=== PATIENT | male | born 1975 | race American Indian/Alaskan Native ===

== ENCOUNTER 2017-01-06 16:47 | Emergency (ER) | payer SELFPAY ==
[2017-01-06 17:02] VITALS: BP 151/94
[2017-01-06] MEDS ORDERED: TORADOL IM ONE (19:05)
--- NOTE | 2017-01-06 19:13 | Emergency Department Report ---
ED Back Pain/Injury HPI - General Chief Complaint: Back Pain/Injury Stated Complaint: BACK PAIN Time Seen by Provider: 01/06/17 18:44 Source: patient Limitations: No Limitations - History of Present Illness Initial Comments: Patient reports that he had a work related injury to the left lower back on 12/02 and relates that he has been seeing a worker's comp doctor who is giving him benadryl, tylenol and motrin. Relates that none of this is helping. Came to ED for pain management. MD Complaint: back pain Onset/Timin -: Gradual, month(s) Place: work Severity: moderate Severity scale (0 -10): 7 Quality: dull, aching Consistency: constant Improves With: immobilization Worsens With: movement Context: while lifting, bending Associated Symptoms: denies other symptoms. denies: confusion, weakness, numbness, difficulty walking, headaches, loss of appetite, nausea/vomiting, rash , syncope - Related Data Home Medications Medication Instructions Recorded Confirmed Last Taken Acetaminophen [Tylenol] 500 mg PO Q4HR 01/06/17 01/06/17 Unknown Motrin 200 MG tab PRN 01/06/17 01/06/17 diphenhydrAMINE [Benadryl CAP] 25 mg PO Q8HR PRN 01/06/17 01/06/17 Unknown Previous Rx's Medication Instructions Recorded Last Taken Type methOCARBAMOL [Robaxin TAB] 500 mg PO BID #20 tab 01/06/17 Unknown Rx traMADol [Ultram 50 MG tab] 50 mg PO Q6HR PRN #20 tablet 01/06/17 Unknown Rx Allergies Allergy/AdvReac Type Severity Reaction Status Date / Time No Known Allergies Allergy Verified 04/27/14 23:10 ED Review of Systems ROS: Stated complaint: BACK PAIN Other details as noted in HPI Constitutional: denies: chills, fever Respiratory: denies: cough, shortness of breath, wheezing Cardiovascular: denies: chest pain, palpitations Musculoskeletal: as per HPI, back pain Skin: denies: rash, lesions Neurological: denies: headache, weakness, paresthesias Psychiatric: denies: anxiety, depression ED Past Medical Hx - Past Medical History Previous Medical History?: Yes Additional medical history: back pain - Surgical History Past Surgical History?: Yes Hx Appendectomy: Yes - Social History Smoking Status: Never Smoker Substance Use Type: Alcohol, Prescribed - Medications Home Medications: Home Medications Medication Instructions Recorded Confirmed Last Taken Type Acetaminophen [Tylenol] 500 mg PO Q4HR 01/06/17 01/06/17 Unknown History Motrin 200 MG tab PRN 01/06/17 01/06/17 History diphenhydrAMINE [Benadryl CAP] 25 mg PO Q8HR PRN 01/06/17 01/06/17 Unknown History methOCARBAMOL [Robaxin TAB] 500 mg PO BID #20 tab 01/06/17 Unknown Rx traMADol [Ultram 50 MG tab] 50 mg PO Q6HR PRN #20 tablet 01/06/17 Unknown Rx ED Physical Exam - General Limitations: No Limitations General appearance: alert, in no apparent distress - Head Head exam: Present: atraumatic, normocephalic - Eye Eye exam: Present: normal appearance - Respiratory Respiratory exam: Present: normal lung sounds bilaterally. Absent: respiratory distress - Cardiovascular Cardiovascular Exam: Present: regular rate, normal rhythm. Absent: systolic murmur, diastolic murmur, rubs, gallop - Back Exam Back exam: Present: normal inspection, full ROM, tenderness, muscle spasm. Absent: paraspinal tenderness, vertebral tenderness - Neurological Exam Neurological exam: Present: alert, oriented X3 - Psychiatric Psychiatric exam: Present: normal affect, normal mood ED Course Vital Signs 01/06/17 16:58 Temperature 98.5 F Pulse Rate 75 Blood Pressure 151/94 O2 Sat by Pulse 99 Oximetry ED Medical Decision Making - Medical Decision Making Patient is resting comfortably in the ED room. Gave 60 mg of IM Toradol. Will start patient on tramadol, robaxin at this time and advised follow up with his doctor in 2-3 days. - Differential Diagnosis lumbar strain, back pain, musculoskeletal pain, back strain Critical care attestation.: If time is entered above; I have spent that time in minutes in the direct care of this critically ill patient, excluding procedure time. ED Disposition Clinical Impression: Lower back pain Qualifiers: Chronicity: chronic Back pain laterality: left Sciatica presence: without sciatica Qualified Code(s): M54.5 - Low back pain; G89.29 - Other chronic pain Disposition: DISCHARGED TO HOME OR SELFCARE Is pt being admited?: No Does the pt Need Aspirin: No Condition: Stable Instructions: Low Back Strain (ED), Acute Low Back Pain (ED), Lumbar Radiculopathy (ED), Back Pain (ED) Prescriptions: methOCARBAMOL [Robaxin TAB] 500 mg PO BID #20 tab traMADol [Ultram 50 MG tab] 50 mg PO Q6HR PRN #20 tablet PRN Reason: Pain Referrals: NAYELI RUBALCAVA MD [Staff Physician] - 3-5 Days Time of Disposition: 19:15
== END 2017-01-06 19:15 | disposition home or self-care (01) ==
LOC: ED 16:47
DX: M54.5 Low back pain (principal); X58.XXXA Exposure to other specified factors, initial encounter; Y93.9 Activity, unspecified; Y92.9 Unspecified place or not applicable; Y99.9 Unspecified external cause status
CPT/HCPCS: 96372; 99282; J1885

== ENCOUNTER 2017-06-07 10:36 | Emergency (ER) | payer SELFPAY ==
[2017-06-07] MEDS ORDERED: PEPCID PO ONE (11:49)
[2017-06-07] MEDS ORDERED: DECADRON IM STA (11:49)
--- NOTE | 2017-06-07 11:49 | Emergency Department Report ---
HPI - General Chief Complaint: Allergic Reaction Time Seen by Provider: 06/07/17 11:43 - HPI HPI: Patient reports that he woke up with swelling to his right face and upper lip. Denies any sore throat or drooling. Denies any itchy throat. Denies any tongue swelling. He said he drank Gatorade before he went to bed last night and he doesn't know if this is causing the reaction. Denies any fever or chills. Denies any toothache but reports that he has right lower tooth that is fractured and he doesn't know if that's cause then the swelling to his face. Denies any wheezing, coughing, stridor chest pain or difficulty breathing. No [id number] medication taken. Patient does not have a dentist. ED Past Medical Hx - Past Medical History Previous Medical History?: No Additional medical history: back pain - Surgical History Past Surgical History?: Yes Hx Appendectomy: Yes - Family History Family history: no significant - Social History Smoking Status: Never Smoker Substance Use Type: None Other Social History: Lives with family - Medications Home Medications: Home Medications Medication Instructions Recorded Confirmed Last Taken Type Acetaminophen [Tylenol] 500 mg PO Q4HR 01/06/17 01/06/17 Unknown History Motrin 200 MG tab PRN 01/06/17 01/06/17 History Penicillin Vk [Veetids TAB] 500 mg PO QID #40 tablet 01/06/17 Unknown Rx diphenhydrAMINE [Benadryl CAP] 25 mg PO Q8HR PRN 01/06/17 01/06/17 Unknown History methOCARBAMOL [Robaxin TAB] 500 mg PO BID #20 tab 01/06/17 Unknown Rx traMADol [Ultram 50 MG tab] 50 mg PO Q6HR PRN #20 tablet 01/06/17 Unknown Rx Amoxicillin [Amoxicillin TAB] 875 mg PO BID #20 tablet 06/07/17 Unknown Rx diphenhydrAMINE [Benadryl CAP] 25 mg PO Q8HR PRN #12 capsule 06/07/17 Unknown Rx predniSONE [Deltasone] 50 mg PO QDAY #5 tab 06/07/17 Unknown Rx ED Review of Systems ROS: Stated complaint: ALLERGIC REACTION Other details as noted in HPI Comment: All other systems reviewed and negative Constitutional: denies: chills, fever ENT: other (swelling to upper lip and right facial area. Reports dental caries) . denies: ear pain, throat pain, congestion Respiratory: no symptoms reported Cardiovascular: denies: chest pain, palpitations, edema, syncope Gastrointestinal: denies: abdominal pain, nausea, vomiting Musculoskeletal: denies: back pain, arthralgia, myalgia Skin: denies: rash Neurological: denies: headache, numbness, paresthesias, confusion, abnormal gait , vertigo Physical Exam - Physical Exam Vital Signs: Vital Signs 06/07/17 10:41 Temperature 98.8 F Pulse Rate 85 Respiratory 18 Rate Blood Pressure 155/106 O2 Sat by Pulse 99 Oximetry General: This is a 41-year-old male well-nourished well-developed in no acute distress. Physical Exam: Head: Normocephalic, atraumatic. No abrasions, laceration or contusion Neck: Supple, no adenopathy. Full range of motion. No C-spine tenderness. No muscular tenderness Ears: Bilateral TMs pearly gonzalez, bilaterally is seen without any redness swelling or drainage. Nose: Lateral nasal mucosa without any erythema or congestion. No drainage. No maxillary or frontal sinus tenderness. Mouth: Moist, no pharyngeal exudate or erythema. Uvula is midline and oral airways patent. Tongue is normal. No trismus. No peritonsillar abscess. Positive right facial swelling. Multiple dental caries noted on exam. Positive swelling to upper lip. Abdomen: Nontender the palpation in all quadrants, no guarding or rebound tenderness. No CVA tenderness and normal bowel sounds in all quadrants. Extremity: No clubbing, cyanosis or edema. +2 pulses in all extremities. No neurovascular compromise. Capillary refill is less than 3 seconds. Good color , sensation, movement and temperature in all extremities. Able to ambulate without any difficulties. MSK: Full Range of motion to all extremities, no joint crepitus, deformity, erythema, swelling. No signs of tendon or ligament injury. +5/5 strength in all extremities Skin: Clean dry and intact, no rash or lesions. PSYCH: Normal mood and behavior. ED Course Vital Signs 06/07/17 10:41 Temperature 98.8 F Pulse Rate 85 Respiratory 18 Rate Blood Pressure 155/106 O2 Sat by Pulse 99 Oximetry Vital Signs 06/07/17 06/07/17 10:41 13:00 Temperature 98.8 F Pulse Rate 85 Respiratory 18 Rate Blood Pressure 155/106 Blood Pressure 150/92 [Left] O2 Sat by Pulse 99 Oximetry - Reevaluation(s) Reevaluation #1: 06/07/17 13:04 Pt is here by himself so he was given Decadron 10 mg IM and Pepcid 40 mg by mouth for allergic reaction he was monitored and swelling to upper lip subsided. ED Medical Decision Making - Medical Decision Making MDM: Patient with allergic reaction probably from drinking Gatorade per patient. Has no respiratory symptoms localize upper lip swelling and facial swelling. He also voiced concern of multiple dental decay and was not sure if that was causing the swelling in his face. She did not have any toothache or any erythema around tooth. He does appear to be normal. I discussed the patient that I'll cover him with amoxicillin for multiple dental caries and he' ll need to follow-up with a dentist which I'll refer him to [facility]. I also discussed the patient in the allergic reaction to his lip which he was monitored in the emergency room after given steroid and Pepcid. Swelling to lip has subsided. I encouraged him to return to emergency room if symptoms return. Diagnosis: Minor allergic reaction, dental caries. 1. Follow-up at [facility] as instructed. 2. Take medication as instructed 3. Please follow-up with your primary care physician and if he do not have one you can follow-up at [facility]. 4. If symptoms return, return to the emergency room GURINDER 5. Patient covered with amoxicillin for dental caries and he was given Decadron 10 mg IM and Pepcid 40 mg by mouth in emergency room. Patient discharged home with prescription for prednisone, Benadryl and amoxicillin. Patient is in stable condition. Critical care attestation.: If time is entered above; I have spent that time in minutes in the direct care of this critically ill patient, excluding procedure time. ED Disposition Clinical Impression: Dental caries Allergic reaction Qualifiers: Encounter type: initial encounter Qualified Code(s): T78.40XA - Allergy, unspecified, initial encounter Disposition: DC-01 TO HOME OR SELFCARE Is pt being admited?: No Does the pt Need Aspirin: No Condition: Stable Instructions: Food Allergy (ED), Dental Caries (ED) Additional Instructions: Please follow up with [facility] and [facility]. Please take medication as prescribed Gargle with Listerine at least 2 times a day Floss 2 times a day If symptoms of allergic reaction returned positive, please return to the emergency room GURINDER Prescriptions: Amoxicillin [Amoxicillin TAB] 875 mg PO BID #20 tablet diphenhydrAMINE [Benadryl CAP] 25 mg PO Q8HR PRN #12 capsule PRN Reason: Allergic Reaction predniSONE [Deltasone] 50 mg PO QDAY #5 tab Referrals: PRIMARY CARE, [Primary Care Provider] - 3-[address] [facility] [Outside] - 3-5 Days [facility] [Outside] - 3-5 Days Forms: Work/School Release Form(ED)
[2017-06-07 13:01] VITALS: BP 150/92
== END 2017-06-07 13:27 | disposition home or self-care (01) ==
LOC: ED 10:36
DX: K02.9 Dental caries, unspecified (principal); T78.40XA Allergy, unspecified, initial encounter; Z90.49 Acquired absence of other specified parts of digestive tract
CPT/HCPCS: 96372; 99282; J1100

== ENCOUNTER 2017-11-19 11:36 | Emergency (ER) | payer BC ==
--- NOTE | 2017-11-19 20:01 | Emergency Department Report ---
ED Headache HPI - General Chief Complaint: Headache Stated Complaint: MIGRAINE HEADACHE Time Seen by Provider: 11/19/17 19:14 - History of Present Illness Initial Comments: 42-year-old male past medical history periodontal disease, occasional migraines presents with complaint of toothache and occasional migraines. Patient states he has had some radiating tooth pain for over 3 months as he has severe cavities. Denies fevers chills nausea vomiting. States he gets occasional pus drainage from gums. Denies any tongue swelling or difficulty swallowing or difficulty speaking. Patient speaking in full sentences. Patient also states that he was exposed to Trichomonas via female sex partner this week who informed him of her diagnosis. Patient is requesting to be treated. States he has been under a lot of stress because he does not know what Trichomonas is. Headache is currently a 2 out of 10. Denies any paresthesias or weakness. Patient is awake alert and oriented 3 fully conversant fully lucid and does not appear to be in acute distress. Denies fevers chills urethral discharge or genitourinary rash. Quality: mild Head Injury Location: frontal Recent Head Trauma: occasional headaches Associated Symptoms: denies symptoms Allergies/Adverse Reactions: Allergies No Known Allergies Allergy (Verified 04/27/14 23:10) Home Medications: Ambulatory Orders Acetaminophen [Tylenol] 500 mg PO Q4HR 01/06/17 Motrin 200 MG tab PRN 01/06/17 Penicillin Vk [Veetids TAB] 500 mg PO QID #40 tablet 01/06/17 diphenhydrAMINE [Benadryl CAP] 25 mg PO Q8HR PRN 01/06/17 methOCARBAMOL [Robaxin TAB] 500 mg PO BID #20 tab 01/06/17 traMADol [Ultram 50 MG tab] 50 mg PO Q6HR PRN #20 tablet 01/06/17 Amoxicillin [Amoxicillin TAB] 875 mg PO BID #20 tablet 06/07/17 diphenhydrAMINE [Benadryl CAP] 25 mg PO Q8HR PRN #12 capsule 06/07/17 predniSONE [Deltasone] 50 mg PO QDAY #5 tab 06/07/17 Acetaminophen/Codeine [Tylenol /Codeine # 3 tab] 1 tab PO Q6H PRN #12 tab Amoxicillin [Trimox CAP] 500 mg PO Q8H #30 capsule 11/19/17 Chlorhexidine Mouthwash [Peridex] 15 ml MM BID #1 bottle 11/19/17 Naproxen 500 mg PO BID PRN #30 tablet 11/19/17 metroNIDAZOLE [Metronidazole] 2 tab PO BID #4 tablet 11/19/17 ED Review of Systems ROS: Stated complaint: MIGRAINE HEADACHE Other details as noted in HPI Constitutional: denies: chills, fever Eyes: denies: eye pain, eye discharge, vision change ENT: dental pain (dental cavities). denies: ear pain, throat pain Respiratory: denies: cough, shortness of breath, wheezing Cardiovascular: denies: chest pain, palpitations Endocrine: no symptoms reported Gastrointestinal: denies: abdominal pain, nausea, diarrhea Genitourinary: as per HPI (expsoure to trichomonas). denies: urgency, dysuria Musculoskeletal: denies: back pain, joint swelling, arthralgia Skin: denies: rash, lesions Neurological: headache (ocassional headaches). denies: weakness, paresthesias Psychiatric: denies: anxiety, depression Hematological/Lymphatic: denies: easy bleeding, easy bruising ED Past Medical Hx - Past Medical History Previous Medical History?: Yes Additional medical history: back pain - Surgical History Past Surgical History?: Yes Hx Appendectomy: Yes - Social History Smoking Status: Never Smoker Substance Use Type: Non Opiate Pain, Other - Medications Home Medications: Home Medications Medication Instructions Recorded Confirmed Last Taken Type Acetaminophen [Tylenol] 500 mg PO Q4HR 01/06/17 01/06/17 Unknown History Motrin 200 MG tab PRN 01/06/17 01/06/17 History Penicillin Vk [Veetids TAB] 500 mg PO QID #40 tablet 01/06/17 Unknown Rx diphenhydrAMINE [Benadryl CAP] 25 mg PO Q8HR PRN 01/06/17 01/06/17 Unknown History methOCARBAMOL [Robaxin TAB] 500 mg PO BID #20 tab 01/06/17 Unknown Rx traMADol [Ultram 50 MG tab] 50 mg PO Q6HR PRN #20 tablet 01/06/17 Unknown Rx Amoxicillin [Amoxicillin TAB] 875 mg PO BID #20 tablet 06/07/17 Unknown Rx diphenhydrAMINE [Benadryl CAP] 25 mg PO Q8HR PRN #12 capsule 07/25/17 Unknown Rx predniSONE [Deltasone] 50 mg PO QDAY #5 tab 06/07/17 Unknown Rx Acetaminophen/Codeine [Tylenol 1 tab PO Q6H PRN #12 tab 11/19/17 Unknown Rx /Codeine # 3 tab] Amoxicillin [Trimox CAP] 500 mg PO Q8H #30 capsule 11/19/17 Unknown Rx Chlorhexidine Mouthwash [Peridex] 15 ml MM BID #1 bottle 11/19/17 Unknown Rx Naproxen 500 mg PO BID PRN #30 tablet 11/19/17 Unknown Rx metroNIDAZOLE [Metronidazole] 2 tab PO BID #4 tablet 11/19/17 Unknown Rx ED Physical Exam - General Limitations: No Limitations General appearance: alert, in no apparent distress - Head Head exam: Present: atraumatic, normocephalic - Eye Eye exam: Present: normal appearance, PERRL, EOMI - ENT ENT exam: Present: mucous membranes moist - Expanded ENT Exam Expanded Teeth exam: Present: dental caries (multile dental cavities and severe peridontal disease) - Neck Neck exam: Present: normal inspection, full ROM - Respiratory Respiratory exam: Present: normal lung sounds bilaterally. Absent: respiratory distress - Cardiovascular Cardiovascular Exam: Present: regular rate, normal rhythm. Absent: systolic murmur, diastolic murmur, rubs, gallop - GI/Abdominal GI/Abdominal exam: Present: soft, normal bowel sounds - Rectal Rectal exam: Present: deferred - Extremities Exam Extremities exam: Present: normal inspection - Back Exam Back exam: Present: normal inspection - Neurological Exam Neurological exam: Present: alert, oriented X3, CN II-XII intact, normal gait - Expanded Neurological Exam Expanded Patient oriented to: Present: person, place, time Cranial nerves: EOM's Intact: Normal, Facial Sensation: Normal Cerebellar function: Finger to Nose: Normal, Heel to Hodges: Normal, Romberg: Normal Sensory exam: Upper Extremity Light Touch: Normal, Lower Extremity Light Touch: Normal Motor strength exam: RUE: 5, LUE: 5, RLE: 5, LLE: 5 Best Eye Response (Santos): (4) open spontaneously Best Motor Response ([place]): (6) obeys commands Best Verbal Response ([place]): (5) oriented Santos Total: 15 - Psychiatric Psychiatric exam: Present: normal affect, normal mood - Skin Skin exam: Present: warm, dry, intact, normal color. Absent: rash ED Course Vital Signs 11/19/17 11:51 Temperature 97.9 F Pulse Rate 68 Respiratory 20 Rate Blood Pressure 146/89 O2 Sat by Pulse 99 Oximetry ED Medical Decision Making - Medical Decision Making A/P: dental cavities, periodontal disease, headache, trichomonas exposure 1- naproxen when necessary, amoxicillin ten-day coursePeridex mouthwash daily basis, short course codeine when necessary, 2- I provided patient with information for multiple dental clinics to follow up and stressed the importance of dental follow-up as he has multiple cavities that require dental fixation or instrumentation 3- no clinical signs of facial abscess, no Joseph's angina, no induration or cellulitis of floor of mouth or tongue 4- patient able to tolerate by mouth before discharge 5- no signs of facial infection. Advised patient that if he does not take antibiotics with follow-up with a dentist as soon as possible that a can result in potentially serious or dangerous infection to develop in jaw or face. Patient states that he understood these instructions. I advised patient to return to the ED for any persistent unrelenting nausea or vomiting fever or chills or headaches. 7-patient's headache is minimal has had headaches like this in the past. States it may be radiating from his teeth and patient does have multiple dental cavities. I advised patient to follow up with primary care. I will treat patient empirically for trichomonas exposure 8- Cranial nerves 2, 3, 4, 5, 6, 7, 8,10, 11, 12 intact on clinical exam, patient is fully lucid awake alert and oriented 3 conversant. Denies any upper or lower extremity paresthesias and has 5/5 strength in bilateral upper and lower extremities on clinical exam. Critical care attestation.: If time is entered above; I have spent that time in minutes in the direct care of this critically ill patient, excluding procedure time. ED Disposition Clinical Impression: Trichomonas contact, Periodontal disease Headache Qualifiers: Headache type: tension-type Headache chronicity pattern: acute headache Intractability: not intractable Qualified Code(s): G44.209 - Tension-type headache, unspecified, not intractable Disposition: DC-01 TO HOME OR SELFCARE Is pt being admited?: No Does the pt Need Aspirin: No Condition: Stable Instructions: Trichomoniasis (ED), Dental Caries (ED), Acute Headache (ED) Prescriptions: Acetaminophen/Codeine [Tylenol /Codeine # 3 tab] 1 tab PO Q6H PRN #12 tab PRN Reason: Toothache Amoxicillin [Trimox CAP] 500 mg PO Q8H #30 capsule Chlorhexidine Mouthwash [Peridex] 15 ml MM BID #1 bottle metroNIDAZOLE [Metronidazole] 2 tab PO BID #4 tablet Naproxen 500 mg PO BID PRN #30 tablet PRN Reason: Headache Referrals: CYN REYES MD [Primary Care Provider] - 3-5 Days [facility] [Outside] - 3-[address] [facility] [Outside] - 3-5 Days WARD JUAREZ MD [Referring] - 3-5 Days GOSIA JUAREZ MD [Staff Physician] - 3-5 Days Forms: Work/School Release Form(ED) Time of Disposition: 20:14
[2017-11-19 20:32] VITALS: BP 151/92
== END 2017-11-19 20:32 | disposition home or self-care (01) ==
LOC: ED 11:36
DX: G44.209 Tension-type headache, unspecified, not intractable (principal); K05.5 Other periodontal diseases; Z20.2 Contact with and (suspected) exposure to infections with a predominantly sexual mode of transmission
CPT/HCPCS: 99282

== ENCOUNTER 2019-01-26 07:59 | Emergency (ER) | payer BC ==
[2019-01-26 08:06] VITALS: BP 148/102
--- NOTE | 2019-01-26 08:43 | Emergency Department Report ---
ED ENT HPI - General Chief complaint: Dental/Oral Stated complaint: LFT SIDE TOOTHACHE Time Seen by Provider: 01/26/19 08:20 Source: patient Mode of arrival: Ambulatory Limitations: No Limitations - History of Present Illness MD complaint: tooth pain -: Sudden Location: tooth # (14) Severity: mild Severity scale (0 -10): 6 Quality: aching Consistency: constant Worsens with: none Context- Dental: poor dental care Associated Symptoms: toothache. denies: fever, cough, gum swelling, pain with swallowing, sore throat - Related Data Home Medications Medication Instructions Recorded Confirmed Last Taken Acetaminophen [Tylenol] 500 mg PO Q4HR 01/06/17 01/06/17 Unknown Motrin 200 MG tab PRN 01/06/17 01/06/17 diphenhydrAMINE [Benadryl CAP] 25 mg PO Q8HR PRN 01/06/17 01/06/17 Unknown Previous Rx's Medication Instructions Recorded Last Taken Type Penicillin Vk [Veetids TAB] 500 mg PO QID #40 tablet 01/06/17 Unknown Rx methOCARBAMOL [Robaxin TAB] 500 mg PO BID #20 tab 01/06/17 Unknown Rx traMADol [Ultram 50 MG tab] 50 mg PO Q6HR PRN #20 tablet 01/06/17 Unknown Rx diphenhydrAMINE [Benadryl CAP] 25 mg PO Q8HR PRN #12 capsule 06/07/17 Unknown Rx predniSONE [Deltasone] 50 mg PO QDAY #5 tab 06/07/17 Unknown Rx Acetaminophen/Codeine [Tylenol 1 tab PO Q6H PRN #12 tab 11/19/17 Unknown Rx /Codeine # 3 tab] Amoxicillin [Trimox CAP] 500 mg PO Q8H #30 capsule 11/19/17 Unknown Rx Naproxen 500 mg PO BID PRN #30 tablet 11/19/17 Unknown Rx metroNIDAZOLE [Metronidazole] 2 tab PO BID #4 tablet 11/19/17 Unknown Rx Amoxicillin [Amoxicillin TAB] 875 mg PO BID #20 tablet 01/26/19 Unknown Rx Chlorhexidine Mouthwash [Peridex] 15 ml MM BID #1 bottle 01/26/19 Unknown Rx Ibuprofen [Motrin] 800 mg PO Q8HR #30 tablet 01/26/19 Unknown Rx Allergies Allergy/AdvReac Type Severity Reaction Status Date / Time No Known Allergies Allergy Verified 01/26/19 08:03 ED Dental HPI - General Chief complaint: Dental/Oral Stated complaint: LFT SIDE TOOTHACHE Time Seen by Provider: 01/26/19 08:20 Source: patient Mode of arrival: Ambulatory Limitations: No Limitations - Related Data Home Medications Medication Instructions Recorded Confirmed Last Taken Acetaminophen [Tylenol] 500 mg PO Q4HR 01/06/17 01/06/17 Unknown Motrin 200 MG tab PRN 01/06/17 01/06/17 diphenhydrAMINE [Benadryl CAP] 25 mg PO Q8HR PRN 01/06/17 01/06/17 Unknown Previous Rx's Medication Instructions Recorded Last Taken Type Penicillin Vk [Veetids TAB] 500 mg PO QID #40 tablet 01/06/17 Unknown Rx methOCARBAMOL [Robaxin TAB] 500 mg PO BID #20 tab 01/06/17 Unknown Rx traMADol [Ultram 50 MG tab] 50 mg PO Q6HR PRN #20 tablet 01/06/17 Unknown Rx diphenhydrAMINE [Benadryl CAP] 25 mg PO Q8HR PRN #12 capsule 06/07/17 Unknown Rx predniSONE [Deltasone] 50 mg PO QDAY #5 tab 06/07/17 Unknown Rx Acetaminophen/Codeine [Tylenol 1 tab PO Q6H PRN #12 tab 11/19/17 Unknown Rx /Codeine # 3 tab] Amoxicillin [Trimox CAP] 500 mg PO Q8H #30 capsule 11/19/17 Unknown Rx Naproxen 500 mg PO BID PRN #30 tablet 11/19/17 Unknown Rx metroNIDAZOLE [Metronidazole] 2 tab PO BID #4 tablet 11/19/17 Unknown Rx Amoxicillin [Amoxicillin TAB] 875 mg PO BID #20 tablet 01/26/19 Unknown Rx Chlorhexidine Mouthwash [Peridex] 15 ml MM BID #1 bottle 01/26/19 Unknown Rx Ibuprofen [Motrin] 800 mg PO Q8HR #30 tablet 01/26/19 Unknown Rx Allergies Allergy/AdvReac Type Severity Reaction Status Date / Time No Known Allergies Allergy Verified 01/26/19 08:03 ED Review of Systems ROS: Stated complaint: LFT SIDE TOOTHACHE Other details as noted in HPI Comment: All other systems reviewed and negative ED Past Medical Hx - Past Medical History Additional medical history: back pain - Surgical History Hx Appendectomy: Yes - Social History Smoking Status: Never Smoker Substance Use Type: None - Medications Home Medications: Home Medications Medication Instructions Recorded Confirmed Last Taken Type Acetaminophen [Tylenol] 500 mg PO Q4HR 01/06/17 01/06/17 Unknown History Motrin 200 MG tab PRN 01/06/17 01/06/17 History Penicillin Vk [Veetids TAB] 500 mg PO QID #40 tablet 01/06/17 Unknown Rx diphenhydrAMINE [Benadryl CAP] 25 mg PO Q8HR PRN 01/06/17 01/06/17 Unknown History methOCARBAMOL [Robaxin TAB] 500 mg PO BID #20 tab 01/06/17 Unknown Rx traMADol [Ultram 50 MG tab] 50 mg PO Q6HR PRN #20 tablet 01/06/17 Unknown Rx diphenhydrAMINE [Benadryl CAP] 25 mg PO Q8HR PRN #12 capsule 06/07/17 Unknown Rx predniSONE [Deltasone] 50 mg PO QDAY #5 tab 06/07/17 Unknown Rx Acetaminophen/Codeine [Tylenol 1 tab PO Q6H PRN #12 tab 11/19/17 Unknown Rx /Codeine # 3 tab] Amoxicillin [Trimox CAP] 500 mg PO Q8H #30 capsule 11/19/17 Unknown Rx Naproxen 500 mg PO BID PRN #30 tablet 11/19/17 Unknown Rx metroNIDAZOLE [Metronidazole] 2 tab PO BID #4 tablet 11/19/17 Unknown Rx Amoxicillin [Amoxicillin TAB] 875 mg PO BID #20 tablet 01/26/19 Unknown Rx Chlorhexidine Mouthwash [Peridex] 15 ml MM BID #1 bottle 01/26/19 Unknown Rx Ibuprofen [Motrin] 800 mg PO Q8HR #30 tablet 01/26/19 Unknown Rx ED Physical Exam - General Limitations: No Limitations General appearance: alert, in no apparent distress - Head Head exam: Present: atraumatic, normocephalic - Eye Eye exam: Present: normal appearance - ENT ENT exam: Present: normal exam, mucous membranes moist - Expanded ENT Exam Expanded Teeth exam: Present: dental caries (14), fractured tooth # (14). Absent: gingival enlargement 1 - Fractured, Dental Tenderness Throat exam: Positive: normal inspection. Negative: tonsillar erythema, tonsillomegaly, tonsillar exudate, R peritonsillar mass - Neck Neck exam: Present: normal inspection, full ROM. Absent: tenderness, lymphadenopathy - Respiratory Respiratory exam: Present: normal lung sounds bilaterally. Absent: respiratory distress - Cardiovascular Cardiovascular Exam: Present: regular rate, normal rhythm. Absent: systolic murmur, diastolic murmur, rubs, gallop - GI/Abdominal GI/Abdominal exam: Present: soft, normal bowel sounds - Rectal Rectal exam: Present: deferred - Extremities Exam Extremities exam: Present: normal inspection - Back Exam Back exam: Present: normal inspection - Neurological Exam Neurological exam: Present: alert, oriented X3 - Psychiatric Psychiatric exam: Present: normal affect, normal mood - Skin Skin exam: Present: warm, dry, intact, normal color. Absent: rash ED Course Vital Signs 01/26/19 08:03 Temperature 98.5 F Pulse Rate 77 Respiratory 20 Rate Blood Pressure 148/102 O2 Sat by Pulse 98 Oximetry ED Medical Decision Making - Medical Decision Making 43-year-old male who presents withodontogenic caries ED course: Patient received motrin Odontogenic infection versus ear infection. Pt has no evidence of acute impending airway compromise. At this point, patient will be discharged home on some antibiotics and pain trial, she will do well with an outpatient course of antibiotics. Follow up with the Dental Clinic as referred Vital signs are normal patient is in no acute distress. Pt had an effect uneventful ED stay Critical care attestation.: If time is entered above; I have spent that time in minutes in the direct care of this critically ill patient, excluding procedure time. ED Disposition Clinical Impression: Dental caries Disposition: DC-01 TO HOME OR SELFCARE Is pt being admited?: No Does the pt Need Aspirin: No Condition: Stable Instructions: Toothache (ED), Dental Caries (ED) Additional Instructions: Make sure to follow up with the dentist as discussed. Take all your medications as you've been prescribed. If you have any worsening symptoms or develop new symptoms please return to ED immediately. Prescriptions: Amoxicillin [Amoxicillin TAB] 875 mg PO BID #20 tablet Ibuprofen [Motrin] 800 mg PO Q8HR #30 tablet Chlorhexidine Mouthwash [Peridex] 15 ml MM BID #1 bottle Referrals: AYANA MARCUS MD [Primary Care Provider] - 3-5 Days [facility] [Outside] - 3-5 Days [facility] [Outside] - 3-5 Days Forms: Work/School Release Form(ED) Time of Disposition: 08:48
[2019-01-26] MEDS ORDERED: TORADOL IM ONE (08:49)
== END 2019-01-26 09:02 | disposition home or self-care (01) ==
LOC: ED 07:59
DX: K04.7 Periapical abscess without sinus (principal)
CPT/HCPCS: 96372; 99282; J1885

== ENCOUNTER 2019-09-01 10:44 | Emergency (ER) | payer BC ==
[2019-09-01] MEDS ORDERED: CATAPRES PO ONE (12:03)
--- NOTE | 2019-09-01 12:07 | Emergency Department Report ---
ED General Adult HPI - General Chief complaint: High BP Stated complaint: NEEDS HBP CHECKED Time Seen by Provider: 09/01/19 11:59 Source: patient Mode of arrival: Ambulatory Limitations: No Limitations - History of Present Illness Initial comments: Patient is 44 years old male with no significant past medical history. Patient stated that he has headache for the last 3 days on and off. Patient stated that he went to [facility] and he checked his blood pressure and found to be 180/90. Patient denied any weakness, numbness or tingling sensation. Patient denied chest pain or shortness of breath. - Related Data Home Medications Medication Instructions Recorded Confirmed Last Taken Acetaminophen [Tylenol] 500 mg PO Q4HR 01/06/17 01/06/17 Unknown Motrin 200 MG tab PRN 01/06/17 01/06/17 diphenhydrAMINE [Benadryl CAP] 25 mg PO Q8HR PRN 01/06/17 01/06/17 Unknown Previous Rx's Medication Instructions Recorded Last Taken Type Penicillin Vk [Veetids TAB] 500 mg PO QID #40 tablet 01/06/17 Unknown Rx methOCARBAMOL [Robaxin TAB] 500 mg PO BID #20 tab 01/06/17 Unknown Rx traMADol [Ultram 50 MG tab] 50 mg PO Q6HR PRN #20 tablet 01/06/17 Unknown Rx diphenhydrAMINE [Benadryl CAP] 25 mg PO Q8HR PRN #12 capsule 06/07/17 Unknown Rx predniSONE [Deltasone] 50 mg PO QDAY #5 tab 06/07/17 Unknown Rx Acetaminophen/Codeine [Tylenol 1 tab PO Q6H PRN #12 tab 11/19/17 Unknown Rx /Codeine # 3 tab] Amoxicillin [Trimox CAP] 500 mg PO Q8H #30 capsule 11/19/17 Unknown Rx Naproxen 500 mg PO BID PRN #30 tablet 11/19/17 Unknown Rx metroNIDAZOLE [Metronidazole] 2 tab PO BID #4 tablet 11/19/17 Unknown Rx Amoxicillin [Amoxicillin TAB] 875 mg PO BID #20 tablet 01/26/19 Unknown Rx Chlorhexidine Mouthwash [Peridex] 15 ml MM BID #1 bottle 01/26/19 Unknown Rx Ibuprofen [Motrin] 800 mg PO Q8HR #30 tablet 01/26/19 Unknown Rx amLODIPine [Norvasc] 5 mg PO DAILY #30 tab 10/19/19 Unknown Rx Allergies Allergy/AdvReac Type Severity Reaction Status Date / Time No Known Allergies Allergy Verified 09/01/19 10:48 ED Review of Systems ROS: Stated complaint: NEEDS HBP CHECKED Other details as noted in HPI Comment: All other systems reviewed and negative Constitutional: denies: chills, fever Respiratory: denies: cough, shortness of breath, SOB with exertion Cardiovascular: denies: chest pain, palpitations Gastrointestinal: denies: abdominal pain, nausea, vomiting, diarrhea, constipation, hematemesis, melena, hematochezia Genitourinary: denies: urgency Musculoskeletal: denies: back pain Neurological: headache. denies: weakness, numbness, paresthesias, confusion, abnormal gait, vertigo Psychiatric: denies: depression ED Past Medical Hx - Past Medical History Previous Medical History?: No Additional medical history: back pain - Surgical History Past Surgical History?: Yes Hx Appendectomy: Yes - Social History Smoking Status: Never Smoker Substance Use Type: None - Medications Home Medications: Home Medications Medication Instructions Recorded Confirmed Last Taken Type Acetaminophen [Tylenol] 500 mg PO Q4HR 01/06/17 01/06/17 Unknown History Motrin 200 MG tab PRN 01/06/17 01/06/17 History Penicillin Vk [Veetids TAB] 500 mg PO QID #40 tablet 01/06/17 Unknown Rx diphenhydrAMINE [Benadryl CAP] 25 mg PO Q8HR PRN 01/06/17 01/06/17 Unknown History methOCARBAMOL [Robaxin TAB] 500 mg PO BID #20 tab 01/06/17 Unknown Rx traMADol [Ultram 50 MG tab] 50 mg PO Q6HR PRN #20 tablet 01/06/17 Unknown Rx diphenhydrAMINE [Benadryl CAP] 25 mg PO Q8HR PRN #12 capsule 06/07/17 Unknown Rx predniSONE [Deltasone] 50 mg PO QDAY #5 tab 06/07/17 Unknown Rx Acetaminophen/Codeine [Tylenol 1 tab PO Q6H PRN #12 tab 11/19/17 Unknown Rx /Codeine # 3 tab] Amoxicillin [Trimox CAP] 500 mg PO Q8H #30 capsule 11/19/17 Unknown Rx Naproxen 500 mg PO BID PRN #30 tablet 11/19/17 Unknown Rx metroNIDAZOLE [Metronidazole] 2 tab PO BID #4 tablet 11/19/17 Unknown Rx Amoxicillin [Amoxicillin TAB] 875 mg PO BID #20 tablet 01/26/19 Unknown Rx Chlorhexidine Mouthwash [Peridex] 15 ml MM BID #1 bottle 01/26/19 Unknown Rx Ibuprofen [Motrin] 800 mg PO Q8HR #30 tablet 01/26/19 Unknown Rx amLODIPine [Norvasc] 5 mg PO DAILY #30 tab 09/01/19 Unknown Rx ED Physical Exam - General Limitations: No Limitations General appearance: alert, in no apparent distress - Head Head exam: Present: atraumatic, normocephalic, normal inspection - Eye Eye exam: Present: normal appearance, PERRL - ENT ENT exam: Present: normal exam, normal orophraynx, mucous membranes moist - Neck Neck exam: Present: normal inspection, full ROM. Absent: tenderness, meningismus, lymphadenopathy, thyromegaly - Respiratory Respiratory exam: Present: normal lung sounds bilaterally - Cardiovascular Cardiovascular Exam: Present: regular rate, normal rhythm, normal heart sounds - GI/Abdominal GI/Abdominal exam: Present: soft, normal bowel sounds. Absent: distended, tenderness, guarding, rebound, rigid, diminished bowel sounds, organomegaly, mass, bruit, pulsatile mass, hernia - Extremities Exam Extremities exam: Present: normal inspection, full ROM, normal capillary refill. Absent: tenderness, pedal edema, calf tenderness - Back Exam Back exam: Present: normal inspection, full ROM. Absent: CVA tenderness (R), CVA tenderness (L), muscle spasm, paraspinal tenderness, vertebral tenderness - Neurological Exam Neurological exam: Present: alert, oriented X3, CN II-XII intact, normal gait, reflexes normal - Psychiatric Psychiatric exam: Present: normal mood - Skin Skin exam: Present: warm, intact, normal color ED Course Vital Signs 09/01/19 09/01/19 09/01/19 10:50 12:08 12:16 Temperature 97.9 F Pulse Rate 69 60 60 Respiratory 16 18 Rate Blood Pressure 150/102 Blood Pressure 160/100 150/102 [Left] O2 Sat by Pulse 99 97 Oximetry ED Medical Decision Making - Lab Data Result diagrams: 09/01/19 12:23 09/01/19 12:23 - Radiology Data Radiology results: report reviewed - Medical Decision Making Patient is 44 years old male with no significant past medical history. Patient stated that he has headache for the last 3 days on and off. Patient stated that he went to [facility] and he checked his blood pressure and found to be 180/90. Patient denied any weakness, numbness or tingling sensation. Patient denied chest pain or shortness of breath. Labs reviewed and is unremarkable. Patient received clonidine 0.1 mg. Patient stated that since symptom is much better now. Her blood pressure is 150/92. Patient given a prescription for Norvasc 5 mg daily and advised to follow-up with his primary care physician in the next 2-3 days and to return to the ER if symptoms are not improved Critical care attestation.: If time is entered above; I have spent that time in minutes in the direct care of this critically ill patient, excluding procedure time. ED Disposition Clinical Impression: Malignant hypertension, Headache Disposition: DC-01 TO HOME OR SELFCARE Is pt being admited?: No Condition: Stable Instructions: Hypertension (ED) Prescriptions: amLODIPine [Norvasc] 5 mg PO DAILY #30 tab Referrals: [facility] [Provider Group] - 3-5 Days
[2019-09-01 12:48] LABS: Bilirubin,Urine NEG (Negative); Blood,Urine NEG (Negative); Color,Urine Straw (Yellow); Protein,Urine <15 mg/dL mg/dL (Negative); Urobilinogen,Urine < 2.0 mg/dL (<2.0); WBC,Urine < 1.0 /HPF (0.0-6.0)
--- NOTE | 2019-09-01 12:54 | Cat Scan Report ---
CT head/brain wo con INDICATION / CLINICAL INFORMATION: 44 years Male; headache and high blood pressure. TECHNIQUE: Routine CT head without contrast. All CT scans at this location are performed using CT dos e reduction for ALARA by means of automated exposure control. COMPARISON: None. FINDINGS: BRAIN / INTRACRANIAL CONTENTS: No acute hemorrhage, mass effect, midline shift, hydrocephalus, or acu te, large territorial infarct. No chronic infarct or focal atrophy. No significant white matter abnor mality. CRANIOCERVICAL JUNCTION: No significant abnormality. ORBITS: No significant abnormality of visualized orbits. SINUSES / MASTOIDS: Mild mucosal thickening seen in the ethmoids. There is also minimal mucosal thick ening in the left sphenoid sinus. ADDITIONAL FINDINGS: None. IMPRESSION: 1. No focal mass, hemorrhage, hydrocephalus, or acute, large territorial infarct. Signer Name: Anthony Allen MD, III Signed: 09/01/2019 12:49 PM Workstation Name: [id number]
[2019-09-01 13:16] LABS: Hematocrit 42.5 % (35.5-45.6); Hemoglobin 14.1 gm/dl (11.8-15.2); Mean Corpuscular HGB Conc 33 % (32-34); Mean Corpuscular Volume 85 fl (84-94); Platelet Count 267 K/mm3 (140-440); Red Blood Count 4.98 M/mm3 (3.65-5.03); Red Cell Distribution Width 14.8 % (13.2-15.2)
[2019-09-01 13:26] LABS: Alanine Aminotransferase 22 units/L (7-56); Albumin 4.4 g/dL (3.9-5); BUN/Creatinine Ratio 13; Blood Urea Nitrogen 10 mg/dL (9-20); Calcium 8.8 mg/dL (8.4-10.2); Hemolysis Index 10
[2019-09-01 14:25] VITALS: BP 139/99
[2019-09-01 14:40] LABS: Platelet Estimate Consistent w Auto; RBC Morphology Normal; Total Cells Counted 100
== END 2019-09-01 14:24 | disposition home or self-care (01) ==
LOC: ED 10:44
DX: R51 Headache (principal); I10 Essential (primary) hypertension; Z90.89 Acquired absence of other organs; Z79.899 Other long term (current) drug therapy
CPT/HCPCS: 36415; 70450; 80053; 81001; 85007; 85025

== ENCOUNTER 2020-02-03 13:01 | Emergency (ER) | payer BC ==
[2020-02-03 13:14] VITALS: BP 145/90
--- NOTE | 2020-02-03 13:14 | Emergency Department Report ---
Blank Doc - Documentation Documentation: 44-year-old male that presents with acute headache and HTN concerns. This initial assessment/diagnostic orders/clinical plan/treatment(s) is/are subject to change based on patient's health status, clinical progression and re- assessment by fellow clinical providers in the ED. Further treatment and workup at subsequent clinical providers discretion. Patient/guardians urged not to elope from the ED as their condition may be serious if not clinically assessed and managed. Initial orders include: 1- Patient sent to [facility] for further evaluation and treatment
[2020-02-03 13:36] LABS: Basophils # (Auto) 0.1 K/mm3 (0.0-0.1); Basophils % (Auto) 0.9 % (0.0-1.8); Eosinophils # (Auto) 0.2 K/mm3 (0.0-0.4); Eosinophils % (Auto) 3.5 % (0.0-4.3); Hematocrit 40.7 % (35.5-45.6); Hemoglobin 13.6 gm/dl (11.8-15.2); Lymphocytes # (Auto) 2.4 K/mm3 (1.2-5.4); Mean Corpuscular HGB Conc 33 % (32-34); Mean Corpuscular Volume 84 fl (84-94); Monocytes # (Auto) 0.8 K/mm3 (0.0-0.8); Monocytes % (Auto) 12.6 % (0.0-7.3); Platelet Count 282 K/mm3 (140-440); Red Blood Count 4.85 M/mm3 (3.65-5.03); Red Cell Distribution Width 14.4 % (13.2-15.2)
[2020-02-03 13:56] LABS: BUN/Creatinine Ratio 10; Blood Urea Nitrogen 8 mg/dL (9-20); Calcium 9.3 mg/dL (8.4-10.2); Hemolysis Index 4
--- NOTE | 2020-02-03 14:33 | Emergency Department Report ---
ED General Adult HPI - General Chief complaint: Headache Stated complaint: HBP/HEADACHE Time Seen by Provider: 02/03/20 13:12 Source: patient Mode of arrival: Ambulatory Limitations: No Limitations - History of Present Illness Initial comments: 48-year-old male states he woke up this morning with a headache. He took 1 pack of Goody powder and did get some relief. Headache is now #4 on a pain scale. patient states he came to the emergency room because he was concerned about his blood pressure and he is been having dental pain across his front teeth. Patient's blood pressure now is 145/90. He denies chest pain shortness of breath no fever or cough - Related Data Home Medications Medication Instructions Recorded Confirmed Last Taken Acetaminophen [Tylenol] 500 mg PO Q4HR 01/06/17 01/06/17 Unknown Motrin 200 MG tab PRN 01/06/17 01/06/17 diphenhydrAMINE [Benadryl CAP] 25 mg PO Q8HR PRN 01/06/17 01/06/17 Unknown Previous Rx's Medication Instructions Recorded Last Taken Type Penicillin Vk [Veetids TAB] 500 mg PO QID #40 tablet 01/06/17 Unknown Rx methOCARBAMOL [Robaxin TAB] 500 mg PO BID #20 tab 01/06/17 Unknown Rx traMADoL [Ultram 50 MG tab] 50 mg PO Q6HR PRN #20 tablet 01/06/17 Unknown Rx diphenhydrAMINE [Benadryl CAP] 25 mg PO Q8HR PRN #12 capsule 06/07/17 Unknown Rx predniSONE [Deltasone] 50 mg PO QDAY #5 tab 06/07/17 Unknown Rx Acetaminophen/Codeine [Tylenol 1 tab PO Q6H PRN #12 tab 11/19/17 Unknown Rx /Codeine # 3 tab] Amoxicillin [Trimox CAP] 500 mg PO Q8H #30 capsule 11/19/17 Unknown Rx Naproxen 500 mg PO BID PRN #30 tablet 11/19/17 Unknown Rx metroNIDAZOLE [Metronidazole] 2 tab PO BID #4 tablet 11/19/17 Unknown Rx Amoxicillin [Amoxicillin TAB] 875 mg PO BID #20 tablet 01/26/19 Unknown Rx Chlorhexidine Mouthwash [Peridex] 15 ml MM BID #1 bottle 01/26/19 Unknown Rx Ibuprofen [Motrin] 800 mg PO Q8HR #30 tablet 01/26/19 Unknown Rx Amoxicillin [Amoxicillin TAB] 875 mg PO BID #14 tablet 09/01/19 Unknown Rx amLODIPine [Norvasc] 5 mg PO DAILY #30 tab 09/01/19 Unknown Rx Amoxicillin [Trimox CAP] 500 mg PO Q8H 10 Days #30 capsule 02/03/20 Unknown Rx Ibuprofen [Motrin] 800 mg PO Q8HR PRN #21 tablet 02/03/20 Unknown Rx Allergies Allergy/AdvReac Type Severity Reaction Status Date / Time No Known Allergies Allergy Verified 09/01/19 10:48 ED Review of Systems ROS: Stated complaint: HBP/HEADACHE Other details as noted in HPI Comment: All other systems reviewed and negative Constitutional: denies: chills, fever, weakness Eyes: denies: eye pain ENT: dental pain. denies: ear pain, throat pain Cardiovascular: denies: chest pain, palpitations, dyspnea on exertion, edema, syncope Gastrointestinal: denies: abdominal pain, nausea, vomiting Skin: denies: rash, lesions, change in color ED Past Medical Hx - Past Medical History Previous Medical History?: Yes Hx Hypertension: Yes Additional medical history: back pain - Surgical History Past Surgical History?: Yes Hx Appendectomy: Yes - Social History Smoking Status: Never Smoker Substance Use Type: None - Medications Home Medications: Home Medications Medication Instructions Recorded Confirmed Last Taken Type Acetaminophen [Tylenol] 500 mg PO Q4HR 01/06/17 01/06/17 Unknown History Motrin 200 MG tab PRN 01/06/17 01/06/17 History Penicillin Vk [Veetids TAB] 500 mg PO QID #40 tablet 01/06/17 Unknown Rx diphenhydrAMINE [Benadryl CAP] 25 mg PO Q8HR PRN 01/06/17 01/06/17 Unknown History methOCARBAMOL [Robaxin TAB] 500 mg PO BID #20 tab 01/06/17 Unknown Rx traMADoL [Ultram 50 MG tab] 50 mg PO Q6HR PRN #20 tablet 01/06/17 Unknown Rx diphenhydrAMINE [Benadryl CAP] 25 mg PO Q8HR PRN #12 capsule 06/07/17 Unknown Rx predniSONE [Deltasone] 50 mg PO QDAY #5 tab 06/07/17 Unknown Rx Acetaminophen/Codeine [Tylenol 1 tab PO Q6H PRN #12 tab 11/19/17 Unknown Rx /Codeine # 3 tab] Amoxicillin [Trimox CAP] 500 mg PO Q8H #30 capsule 11/19/17 Unknown Rx Naproxen 500 mg PO BID PRN #30 tablet 11/19/17 Unknown Rx metroNIDAZOLE [Metronidazole] 2 tab PO BID #4 tablet 11/19/17 Unknown Rx Amoxicillin [Amoxicillin TAB] 875 mg PO BID #20 tablet 01/26/19 Unknown Rx Chlorhexidine Mouthwash [Peridex] 15 ml MM BID #1 bottle 01/26/19 Unknown Rx Ibuprofen [Motrin] 800 mg PO Q8HR #30 tablet 01/26/19 Unknown Rx Amoxicillin [Amoxicillin TAB] 875 mg PO BID #14 tablet 09/01/19 Unknown Rx amLODIPine [Norvasc] 5 mg PO DAILY #30 tab 09/01/19 Unknown Rx Amoxicillin [Trimox CAP] 500 mg PO Q8H 10 Days #30 capsule 02/03/20 Unknown Rx Ibuprofen [Motrin] 800 mg PO Q8HR PRN #21 tablet 02/03/20 Unknown Rx ED Physical Exam - General Limitations: No Limitations General appearance: alert - Head Head exam: Present: atraumatic - Eye Eye exam: Present: normal appearance, PERRL, EOMI - ENT ENT exam: Present: mucous membranes moist, TM's normal bilaterally, other (front upper teeth( #7-#11 )fractured with erythremic and swollen gums) - Neck Neck exam: Present: normal inspection - Respiratory Respiratory exam: Present: normal lung sounds bilaterally ED Course Vital Signs 02/03/20 13:12 Temperature 98.3 F Pulse Rate 65 Respiratory 18 Rate Blood Pressure 145/90 O2 Sat by Pulse 99 Oximetry ED Medical Decision Making - Lab Data Result diagrams: 02/03/20 13:22 02/03/20 13:22 - Medical Decision Making 44-year-old male came in with complaint of headache which is mostly resolved at this time. He was found to have fractured teeth numbers 7 through 11 with signs of gingivitis and possibly abscess. Patient's blood pressure today is 145/90. He is currently not on any blood pressure medication. Patient is referred to see his primary care doctor for evaluation and treatment of his blood pressure. He is also referred to follow-up with the dentist to get further dental care Critical Care Time: No Critical care attestation.: If time is entered above; I have spent that time in minutes in the direct care of this critically ill patient, excluding procedure time. ED Disposition Clinical Impression: Dental caries into pulp Headache Qualifiers: Headache type: unspecified Headache chronicity pattern: unspecified pattern I ntractability: not intractable Qualified Code(s): R51 - Headache Disposition: DC- TO HOME OR SELFCARE Is pt being admited?: No Does the pt Need Aspirin: No Condition: Stable Instructions: Tension Headache (ED), Dental Caries (ED) Additional Instructions: Take medication as prescribed. Follow up with your Dentist and your PCP as soon as possible Prescriptions: Ibuprofen [Motrin] 800 mg PO Q8HR PRN #21 tablet PRN Reason: Pain , Severe (7-10) Amoxicillin [Trimox CAP] 500 mg PO Q8H 10 Days #30 capsule Referrals: LALITHA GRANT MD [Staff Physician] - 3-5 Days PRIMARY [facility]ARE, [Primary Care Provider] - 3-5 Days
== END 2020-02-03 14:56 | disposition home or self-care (01) ==
LOC: ED 13:01
DX: K02.9 Dental caries, unspecified (principal); R51 Headache; I10 Essential (primary) hypertension; Z79.1 Long term (current) use of non-steroidal anti-inflammatories (NSAID); Z79.2 Long term (current) use of antibiotics; Z79.899 Other long term (current) drug therapy; Z90.49 Acquired absence of other specified parts of digestive tract
CPT/HCPCS: 36415; 80048; 85025; 99283

== ENCOUNTER 2020-07-07 23:39 | Emergency (ER) | payer BC ==
[2020-07-08 01:32] VITALS: BP 147/99
[2020-07-08] MEDS ORDERED: HYDROcodone/ACETAMINOPHEN 5-325 MG TAB PO ONE (03:23)
[2020-07-08] MEDS ORDERED: IBUPROFEN 600 MG TAB PO ONE (03:23)
[2020-07-08] MEDS ORDERED: LIDOCAINE VISCOUS 2% 15 ML ORAL LIQD PO ONE (03:29)
[2020-07-08] MEDS ORDERED: LIDOCAINE VISCOUS 2% 15 ML ORAL LIQD ONE (03:31)
--- NOTE | 2020-07-08 03:33 | Emergency Department Report ---
ED ENT HPI - General Chief complaint: Dental/Oral Stated complaint: TOOTHACHE Time Seen by Provider: 07/08/20 02:55 Source: patient Mode of arrival: Ambulatory Limitations: No Limitations - History of Present Illness MD complaint: tooth pain -: Gradual, days(s) (3) Location: tooth # (14) Severity: moderate Quality: aching, dull Consistency: constant Improves with: none Worsens with: none Context- Dental: history of dental caries, poor dental care Associated Symptoms: toothache - Related Data Home Medications Medication Instructions Recorded Confirmed Last Taken Acetaminophen [Tylenol] 500 mg PO Q4HR 01/06/17 01/06/17 Unknown Motrin 200 MG tab PRN 01/06/17 01/06/17 diphenhydrAMINE [Benadryl CAP] 25 mg PO Q8HR PRN 01/06/17 01/06/17 Unknown Previous Rx's Medication Instructions Recorded Last Taken Type Penicillin Vk [Veetids TAB] 500 mg PO QID #40 tablet 01/06/17 Unknown Rx methOCARBAMOL [Robaxin TAB] 500 mg PO BID #20 tab 01/06/17 Unknown Rx traMADoL [Ultram 50 MG tab] 50 mg PO Q6HR PRN #20 tablet 01/06/17 Unknown Rx diphenhydrAMINE [Benadryl CAP] 25 mg PO Q8HR PRN #12 capsule 06/07/17 Unknown Rx predniSONE [Deltasone] 50 mg PO QDAY #5 tab 06/07/17 Unknown Rx Acetaminophen/Codeine [Tylenol 1 tab PO Q6H PRN #12 tab 11/19/17 Unknown Rx /Codeine # 3 tab] Amoxicillin [Trimox CAP] 500 mg PO Q8H #30 capsule 11/19/17 Unknown Rx Naproxen 500 mg PO BID PRN #30 tablet 11/19/17 Unknown Rx metroNIDAZOLE [Metronidazole] 2 tab PO BID #4 tablet 11/19/17 Unknown Rx Amoxicillin [Amoxicillin TAB] 875 mg PO BID #20 tablet 01/26/19 Unknown Rx Chlorhexidine Mouthwash [Peridex] 15 ml MM BID #1 bottle 01/26/19 Unknown Rx Ibuprofen [Motrin] 800 mg PO Q8HR #30 tablet 01/26/19 Unknown Rx Amoxicillin [Amoxicillin TAB] 875 mg PO BID #14 tablet 09/01/19 Unknown Rx amLODIPine [Norvasc] 5 mg PO DAILY #30 tab 09/01/19 Unknown Rx Amoxicillin [Trimox CAP] 500 mg PO Q8H 10 Days #30 capsule 02/03/20 Unknown Rx Ibuprofen [Motrin] 800 mg PO Q8HR PRN #21 tablet 02/03/20 Unknown Rx Amoxicillin [Amoxicillin TAB] 875 mg PO BID #20 tablet 07/08/20 Unknown Rx Ketorolac [Toradol] 10 mg PO Q6H PRN #15 tablet 07/08/20 Unknown Rx Lidocaine Viscous 2% 5 ml MM Q3H PRN #120 udc 07/08/20 Unknown Rx Allergies Allergy/AdvReac Type Severity Reaction Status Date / Time No Known Allergies Allergy Verified 09/01/19 10:48 ED Dental HPI - General Chief complaint: Dental/Oral Stated complaint: TOOTHACHE Time Seen by Provider: 07/08/20 02:55 Source: patient Mode of arrival: Ambulatory Limitations: No Limitations - Related Data Home Medications Medication Instructions Recorded Confirmed Last Taken Acetaminophen [Tylenol] 500 mg PO Q4HR 01/06/17 01/06/17 Unknown Motrin 200 MG tab PRN 01/06/17 01/06/17 diphenhydrAMINE [Benadryl CAP] 25 mg PO Q8HR PRN 01/06/17 01/06/17 Unknown Previous Rx's Medication Instructions Recorded Last Taken Type Penicillin Vk [Veetids TAB] 500 mg PO QID #40 tablet 01/06/17 Unknown Rx methOCARBAMOL [Robaxin TAB] 500 mg PO BID #20 tab 01/06/17 Unknown Rx traMADoL [Ultram 50 MG tab] 50 mg PO Q6HR PRN #20 tablet 01/06/17 Unknown Rx diphenhydrAMINE [Benadryl CAP] 25 mg PO Q8HR PRN #12 capsule 06/07/17 Unknown Rx predniSONE [Deltasone] 50 mg PO QDAY #5 tab 06/07/17 Unknown Rx Acetaminophen/Codeine [Tylenol 1 tab PO Q6H PRN #12 tab 11/19/17 Unknown Rx /Codeine # 3 tab] Amoxicillin [Trimox CAP] 500 mg PO Q8H #30 capsule 11/19/17 Unknown Rx Naproxen 500 mg PO BID PRN #30 tablet 11/19/17 Unknown Rx metroNIDAZOLE [Metronidazole] 2 tab PO BID #4 tablet 11/19/17 Unknown Rx Amoxicillin [Amoxicillin TAB] 875 mg PO BID #20 tablet 01/26/19 Unknown Rx Chlorhexidine Mouthwash [Peridex] 15 ml MM BID #1 bottle 01/26/19 Unknown Rx Ibuprofen [Motrin] 800 mg PO Q8HR #30 tablet 01/26/19 Unknown Rx Amoxicillin [Amoxicillin TAB] 875 mg PO BID #14 tablet 09/01/19 Unknown Rx amLODIPine [Norvasc] 5 mg PO DAILY #30 tab 09/01/19 Unknown Rx Amoxicillin [Trimox CAP] 500 mg PO Q8H 10 Days #30 capsule 02/03/20 Unknown Rx Ibuprofen [Motrin] 800 mg PO Q8HR PRN #21 tablet 02/03/20 Unknown Rx Amoxicillin [Amoxicillin TAB] 875 mg PO BID #20 tablet 07/08/20 Unknown Rx Ketorolac [Toradol] 10 mg PO Q6H PRN #15 tablet 07/08/20 Unknown Rx Lidocaine Viscous 2% 5 ml MM Q3H PRN #120 udc 07/08/20 Unknown Rx Allergies Allergy/AdvReac Type Severity Reaction Status Date / Time No Known Allergies Allergy Verified 09/01/19 10:48 ED Review of Systems ROS: Stated complaint: TOOTHACHE Other details as noted in HPI Comment: All other systems reviewed and negative ED Past Medical Hx - Past Medical History Previous Medical History?: Yes Hx Hypertension: Yes Additional medical history: back pain - Surgical History Past Surgical History?: Yes Hx Appendectomy: Yes - Social History Smoking Status: Never Smoker - Medications Home Medications: Home Medications Medication Instructions Recorded Confirmed Last Taken Type Acetaminophen [Tylenol] 500 mg PO Q4HR 01/06/17 01/06/17 Unknown History Motrin 200 MG tab PRN 01/06/17 01/06/17 History Penicillin Vk [Veetids TAB] 500 mg PO QID #40 tablet 01/06/17 Unknown Rx diphenhydrAMINE [Benadryl CAP] 25 mg PO Q8HR PRN 01/06/17 01/06/17 Unknown History methOCARBAMOL [Robaxin TAB] 500 mg PO BID #20 tab 01/06/17 Unknown Rx traMADoL [Ultram 50 MG tab] 50 mg PO Q6HR PRN #20 tablet 01/06/17 Unknown Rx diphenhydrAMINE [Benadryl CAP] 25 mg PO Q8HR PRN #12 capsule 06/07/17 Unknown Rx predniSONE [Deltasone] 50 mg PO QDAY #5 tab 06/07/17 Unknown Rx Acetaminophen/Codeine [Tylenol 1 tab PO Q6H PRN #12 tab 11/19/17 Unknown Rx /Codeine # 3 tab] Amoxicillin [Trimox CAP] 500 mg PO Q8H #30 capsule 11/19/17 Unknown Rx Naproxen 500 mg PO BID PRN #30 tablet 11/19/17 Unknown Rx metroNIDAZOLE [Metronidazole] 2 tab PO BID #4 tablet 11/19/17 Unknown Rx Amoxicillin [Amoxicillin TAB] 875 mg PO BID #20 tablet 01/26/19 Unknown Rx Chlorhexidine Mouthwash [Peridex] 15 ml MM BID #1 bottle 01/26/19 Unknown Rx Ibuprofen [Motrin] 800 mg PO Q8HR #30 tablet 01/26/19 Unknown Rx Amoxicillin [Amoxicillin TAB] 875 mg PO BID #14 tablet 09/01/19 Unknown Rx amLODIPine [Norvasc] 5 mg PO DAILY #30 tab 09/01/19 Unknown Rx Amoxicillin [Trimox CAP] 500 mg PO Q8H 10 Days #30 capsule 02/03/20 Unknown Rx Ibuprofen [Motrin] 800 mg PO Q8HR PRN #21 tablet 02/03/20 Unknown Rx Amoxicillin [Amoxicillin TAB] 875 mg PO BID #20 tablet 07/08/20 Unknown Rx Ketorolac [Toradol] 10 mg PO Q6H PRN #15 tablet 07/08/20 Unknown Rx Lidocaine Viscous 2% 5 ml MM Q3H PRN #120 udc 07/08/20 Unknown Rx ED Physical Exam - General Limitations: No Limitations General appearance: alert, in no apparent distress - Head Head exam: Present: atraumatic, normocephalic - Eye Eye exam: Present: normal appearance - ENT ENT exam: Present: mucous membranes moist, other (3 dental erosion is noted throughout with several dental caries. There is tenderness located to the left upper molar region mild adjacent erythema no swelling no abscess is noted. Tongue and uvula midline airways patent.) - Neck Neck exam: Present: normal inspection - Respiratory Respiratory exam: Present: normal lung sounds bilaterally. Absent: respiratory distress - Cardiovascular Cardiovascular Exam: Present: regular rate, normal rhythm. Absent: systolic murmur, diastolic murmur, rubs, gallop - GI/Abdominal GI/Abdominal exam: Present: soft, normal bowel sounds - Rectal Rectal exam: Present: deferred - Extremities Exam Extremities exam: Present: normal inspection - Back Exam Back exam: Present: normal inspection - Neurological Exam Neurological exam: Present: alert, oriented X3 - Psychiatric Psychiatric exam: Present: normal affect, normal mood - Skin Skin exam: Present: warm, dry, intact, normal color. Absent: rash ED Course Vital Signs 07/08/20 01:19 Temperature 98.2 F Pulse Rate 72 Respiratory 12 Rate Blood Pressure 147/99 O2 Sat by Pulse 99 Oximetry ED Medical Decision Making - Medical Decision Making 45-year-old Filip[place] male with dental pain with no evidence of any peritonsillar abscess. He was advised to keep his appointment with the dentist next week for definitive management he was given analgesics while in the emergency department viable and advised on proper follow-up Critical care attestation.: If time is entered above; I have spent that time in minutes in the direct care of this critically ill patient, excluding procedure time. ED Disposition Clinical Impression: Dentalgia Disposition: - TO HOME OR SELFCARE Is pt being admited?: No Does the pt Need Aspirin: No Condition: Stable Instructions: Toothache (ED), Dental Caries (ED) Referrals: PRIMARY CARE, [Primary Care Provider] - 3-5 Days [facility] [Provider Group] - 3-5 Days [facility] [Outside] - 3-5 Days
== END 2020-07-08 03:54 | disposition home or self-care (01) ==
LOC: ED 23:39
DX: K08.89 Other specified disorders of teeth and supporting structures (principal); I10 Essential (primary) hypertension; Z90.49 Acquired absence of other specified parts of digestive tract; Z79.1 Long term (current) use of non-steroidal anti-inflammatories (NSAID); Z79.2 Long term (current) use of antibiotics; Z79.899 Other long term (current) drug therapy
CPT/HCPCS: 99282